=== PATIENT | female | born 1955 | race Caucasian/White ===

== ENCOUNTER 2018-01-06 12:09 | Emergency (ER) | payer BC, SELFPAY ==
[2018-01-06 12:15] VITALS: BP 137/90; PULSE 87; RESP 18; TEMP 36.9; O2SAT 98
--- NOTE | 2018-01-06 12:25 | ED.EYEPROB ---
HPI - Eye Problem <Abiola Combs PA-C - Last Filed: 01/06/18 16:02> General Chief complaint: Eye Problems Stated complaint: NEED SOMEONE TO CHECK MY EYES Time Seen by Provider: 01/06/18 12:13 Source: patient Mode of arrival: ambulatory Limitations: no limitations History of Present Illness HPI Narrative: HPI: This 62-year-old patient complained of bilateral eye redness, pain, mattering and tearing which started Tuesday night. She states that she used a potent herbicide called [employer] that day. Some of it spilled, however she does not think she got any of it directly in her eyes. She did clean it up and there were fumes. She does not know of any other exposures. She states that by that evening, she began to have pain, redness, and by the next morning had a lot of mattering, right eye was worse initially. She states she has seen her crystal flat grinder twice and was told likely viral pink eye. She has been using large amounts of her lubricating drops, but this has continued to get worse. She denies any fever. She states that she has had some ongoing allergy symptoms but denies any new URI sx in the last week or so. She states that she can see normally aside from the tearing and mattering. Related Data Allergies Allergy/AdvReac Type Severity Reaction Status Date / Time No Known Drug Allergies Allergy Verified 01/06/18 13:40 Review of Systems <Abiola Combs PA-C - Last Filed: 01/06/18 16:02> Review of Systems All systems reviewed & are unremarkable except as noted in HPI and below Exam <Abiola Combs PA-C - Last Filed: 01/06/18 16:02> Narrative Exam Narrative: GENERAL APPEARANCE: Patient sitting comfortably, in no distress. EYES: PERRL, EOMI. Bright red erythema through all of the conjunctiva and covering the cornea which injection surrounding the iris bilaterally. Tearing, no mattering. I am not able to visualize the retina well with and dilated pupils. Vision: OS 20/100, OD 20/50, OU 20/50 NECK/THYROID: Neck supple, full range of motion, no cervical lymphadenopathy. LUNGS: Clear to auscultation bilaterally, no cough on exam. HEART: RRR without murmur, nl S1, S2, no S3 or S4. Initial Vital Signs Initial Vital Signs: Vital Signs Temperature 98.5 F 01/06/18 12:15 Pulse Rate 87 01/06/18 12:15 Respiratory Rate 18 01/06/18 12:15 Blood Pressure 137/90 H 01/06/18 12:15 Pulse Oximetry 98 01/06/18 12:15 <Toñito Solorio MD - Last Filed: 01/06/18 17:19> Initial Vital Signs Initial Vital Signs: Vital Signs Temperature 98.5 F 01/06/18 12:15 Pulse Rate 87 01/06/18 12:15 Respiratory Rate 18 01/06/18 12:15 Blood Pressure 137/90 H 01/06/18 12:15 Pulse Oximetry 98 01/06/18 12:15 Course <Abiola Combs PA-C - Last Filed: 01/06/18 16:02> Hospital Course: I called poison control who advised they would not expect severe toxicity with this level of exposure to this agent. It has been several days now since exposure. I explained certainly there could be a secondary bacterial infection here, however this does seem worse than typical conjunctivitis, and she complains of significant eye pain, not just irritation. Given this, we called her crystal flat grinder and scheduled her a follow-up appointment this afternoon, as I explained a dilated eye exam is probably needed and may need some treatment with steroids. Advised to continue Vaseline for skin irritation. Orders Ordered: Discontinued Medications Erythromycin (Erythromycin Ophth Oint) 1 applic EYE-BOTH NOW ONE Stop: 01/06/18 13:31 Last Admin: 01/06/18 13:41 Dose: 1 applic Proparacaine HCl (Parcaine 0.5% Ophth Ashleigh) 1 drops EYE-BOTH NOW ONE Stop: 01/06/18 12:30 Last Admin: 01/06/18 12:31 Dose: 1 1000units Vital Signs - 8 hr 01/06/18 12:15 01/06/18 14:04 Temperature 98.5 F Pulse Rate 87 80 Respiratory Rate 18 20 Blood Pressure 137/90 H 132/102 H Pulse Oximetry 98 98 <Toñito Solorio MD - Last Filed: 01/06/18 17:19> Orders Ordered: Discontinued Medications Erythromycin (Erythromycin Ophth Oint) 1 applic EYE-BOTH NOW ONE Stop: 06/01/18 13:31 Last Admin: 01/06/18 13:41 Dose: 1 applic Proparacaine HCl (Parcaine 0.5% Ophth Ashleigh) 1 drops EYE-BOTH NOW ONE Stop: 01/06/18 12:30 Last Admin: 01/06/18 12:31 Dose: 1 1000units Vital Signs - 8 hr 01/06/18 12:15 01/06/18 14:04 Temperature 98.5 F Pulse Rate 87 80 Respiratory Rate 18 20 Blood Pressure 137/90 H 132/102 H Pulse Oximetry 98 98 Discharge Plan Departure Patient Disposition: Home, Self-Care Clinical Impression: Conjunctivitis of both eyes Discharge Date/Time: 01/06/18 14:05 Interventions: ED Discharge Assessment Last Done: 01/06/18 14:04 Activity Restrictions/Additional Instructions: When you leave here, please return to Dr. Dillon's office for more thorough exam. They will be expecting you. You can show them the ointment we have given you. That is for a bacterial infection and may also be soothing for your eyes. Please use a warm pack as often as needed to help with the drainage. Use Vaseline around your eyes to help with the irritation. I think that some of the irritation may be from the chemical exposure, but typically this would have such a long lasting effect. Your eyes are also more irritated that we would see from atypical conjunctivitis, so there may be more than 1 type of infection or irritant contributing to this. Sometimes a secondary bacterial infection will develop so it is reasonable to treat for this. Please discuss with Dr. Dillon whether to continue the antibiotic ointment and to add anything else such as steroid drops. Referrals: Norm Roy MD [Primary Care Provider] - <Toñito Solorio MD - Last Filed: 01/06/18 17:19> Cosign ED Attending Cosignature Attestation: The PA/SENIOR INTERACTIVE PRODUCER functioned independently for the care of this pt, I was available, but not asked to participate in care. I am unable to determine appropriateness of management without personally examining the pt.
[2018-01-06] MEDS: PROPARACAINE 0.5% OPHTH SOL 1 DROPS EYE-BOTH (12:31)
--- NOTE | 2018-01-06 12:41 | ED_ITS ---
HPI - Eye Problem <Abiola Combs PA-C - Last Filed: 01/06/18 16:02> General Chief complaint: Eye Problems Stated complaint: NEED SOMEONE TO CHECK MY EYES Time Seen by Provider: 01/06/18 12:13 Source: patient Mode of arrival: ambulatory Limitations: no limitations History of Present Illness HPI Narrative: HPI: This 62-year-old patient complained of bilateral eye redness, pain, mattering and tearing which started Tuesday night. She states that she used a potent herbicide called [employer] that day. Some of it spilled, however she does not think she got any of it directly in her eyes. She did clean it up and there were fumes. She does not know of any other exposures. She states that by that evening, she began to have pain, redness, and by the next morning had a lot of mattering, right eye was worse initially. She states she has seen her manager msw twice and was told likely viral pink eye. She has been using large amounts of her lubricating drops, but this has continued to get worse. She denies any fever. She states that she has had some ongoing allergy symptoms but denies any new URI sx in the last week or so. She states that she can see normally aside from the tearing and mattering. Related Data Allergies Allergy/AdvReac Type Severity Reaction Status Date / Time No Known Drug Allergies Allergy Verified 01/06/18 13:40 Review of Systems <Abiola Combs PA-C - Last Filed: 01/06/18 16:02> Review of Systems All systems reviewed & are unremarkable except as noted in HPI and below Exam <Abiola Combs PA-C - Last Filed: 01/06/18 16:02> Narrative Exam Narrative: GENERAL APPEARANCE: Patient sitting comfortably, in no distress. EYES: PERRL, EOMI. Bright red erythema through all of the conjunctiva and covering the cornea which injection surrounding the iris bilaterally. Tearing, no mattering. I am not able to visualize the retina well with and dilated pupils. Vision: OS 20/100, OD 20/50, OU 20/50 NECK/THYROID: Neck supple, full range of motion, no cervical lymphadenopathy. LUNGS: Clear to auscultation bilaterally, no cough on exam. HEART: RRR without murmur, nl S1, S2, no S3 or S4. Initial Vital Signs Initial Vital Signs: Vital Signs Temperature 98.5 F 01/06/18 12:15 Pulse Rate 87 01/06/18 12:15 Respiratory Rate 18 01/06/18 12:15 Blood Pressure 137/90 H 01/06/18 12:15 Pulse Oximetry 98 01/06/18 12:15 <Toñito Solorio MD - Last Filed: 01/06/18 17:19> Initial Vital Signs Initial Vital Signs: Vital Signs Temperature 98.5 F 01/06/18 12:15 Pulse Rate 87 01/06/18 12:15 Respiratory Rate 18 01/06/18 12:15 Blood Pressure 137/90 H 01/06/18 12:15 Pulse Oximetry 98 01/06/18 12:15 Course <Abiola Combs PA-C - Last Filed: 01/06/18 16:02> Hospital Course: I called poison control who advised they would not expect severe toxicity with this level of exposure to this agent. It has been several days now since exposure. I explained certainly there could be a secondary bacterial infection here, however this does seem worse than typical conjunctivitis, and she complains of significant eye pain, not just irritation. Given this, we called her manager msw and scheduled her a follow-up appointment this afternoon, as I explained a dilated eye exam is probably needed and may need some treatment with steroids. Advised to continue Vaseline for skin irritation. Orders Ordered: Discontinued Medications Erythromycin (Erythromycin Ophth Oint) 1 applic EYE-BOTH NOW ONE Stop: 01/06/18 13:31 Last Admin: 01/06/18 13:41 Dose: 1 applic Proparacaine HCl (Parcaine 0.5% Ophth Ashleigh) 1 drops EYE-BOTH NOW ONE Stop: 01/06/18 12:30 Last Admin: 01/06/18 12:31 Dose: 1 1000units Vital Signs - 8 hr 01/06/18 12:15 01/06/18 14:04 Temperature 98.5 F Pulse Rate 87 80 Respiratory Rate 18 20 Blood Pressure 137/90 H 132/102 H Pulse Oximetry 98 98 <Toñito Solorio MD - Last Filed: 01/06/18 17:19> Orders Ordered: Discontinued Medications Erythromycin (Erythromycin Ophth Oint) 1 applic EYE-BOTH NOW ONE Stop: 06/01/18 13:31 Last Admin: 01/06/18 13:41 Dose: 1 applic Proparacaine HCl (Parcaine 0.5% Ophth Ashleigh) 1 drops EYE-BOTH NOW ONE Stop: 01/06/18 12:30 Last Admin: 01/06/18 12:31 Dose: 1 1000units Vital Signs - 8 hr 01/06/18 12:15 01/06/18 14:04 Temperature 98.5 F Pulse Rate 87 80 Respiratory Rate 18 20 Blood Pressure 137/90 H 132/102 H Pulse Oximetry 98 98 Discharge Plan Departure Patient Disposition: Home, Self-Care Clinical Impression: Conjunctivitis of both eyes Discharge Date/Time: 01/06/18 14:05 Interventions: ED Discharge Assessment Last Done: 01/06/18 14:04 Activity Restrictions/Additional Instructions: When you leave here, please return to Dr. Dillon's office for more thorough exam. They will be expecting you. You can show them the ointment we have given you. That is for a bacterial infection and may also be soothing for your eyes. Please use a warm pack as often as needed to help with the drainage. Use Vaseline around your eyes to help with the irritation. I think that some of the irritation may be from the chemical exposure, but typically this would have such a long lasting effect. Your eyes are also more irritated that we would see from atypical conjunctivitis, so there may be more than 1 type of infection or irritant contributing to this. Sometimes a secondary bacterial infection will develop so it is reasonable to treat for this. Please discuss with Dr. Dillon whether to continue the antibiotic ointment and to add anything else such as steroid drops. Referrals: Norm Roy MD [Primary Care Provider] - <Toñito Solorio MD - Last Filed: 01/06/18 17:19> Cosign ED Attending Cosignature Attestation: The PA/METAL FABRICATING SUPERVISOR functioned independently for the care of this pt, I was available, but not asked to participate in care. I am unable to determine appropriateness of management without personally examining the pt.
[2018-01-06] MEDS: ERYTHROMYCIN OPHTH 1 GM OINT 1 APPLIC EYE-BOTH (13:41)
[2018-01-06 14:04] VITALS: BP 132/102; PULSE 80; RESP 20; O2SAT 98
== END 2018-01-06 14:05 | disposition home or self-care (01) ==
PROVIDERS: Emergency Provider Internal Medicine; PCP Internal Medicine
DX: H10.9 Unspecified conjunctivitis (principal)
CPT/HCPCS: 99283

== ENCOUNTER → 2018-10-19 10:38 | Outpatient (CLI) | payer BC, SELFPAY ==
--- NOTE | 2018-10-19 | DI.MG.S_ITS ---
BILATERAL DIGITAL SCREENING MAMMOGRAM 3D/2D WITH CAD: 10/19/2018 CLINICAL: Routine screening. Comparison is made to exams dated: 09/19/2017 mammogram, 07/29/2016 mammogram - [facility], and 01/18/2014 [place] [facility] The tissue of both breasts is heterogeneously dense. This may lower the sensitivity of mammography. Current study was also evaluated with a Computer Aided Detection (CAD) system. There are benign calcifications in both breasts. No significant masses, calcifications, or other findings are seen in either breast. There has been no significant interval change. IMPRESSION: There is no mammographic evidence of malignancy. A 1 year screening mammogram is recommended. This exam was interpreted at Station ID: [id number]. NOTE: For mammograms, a report in lay terms will be sent to the patient. Approximately 15% of breast malignancies will not be visualized mammographically. In the management of a palpable breast mass, a negative mammogram must not discourage biopsy of a clinically suspicious lesion. Electronically Signed By: Elías peña/catina:10/19/2018 11:24:54 letter sent: Normal Exam ACR BI-RADS Category 2: Benign Finding(s) 3342F
== END ==
PROVIDERS: PCP Internal Medicine; Visit Provider Internal Medicine
DX: Z12.31 Encounter for screening mammogram for malignant neoplasm of breast (principal)
CPT/HCPCS: 77063; 77067

== ENCOUNTER → 2019-04-17 12:53 | Outpatient (CLI) | payer BC, SELFPAY | PROVIDERS: PCP Internal Medicine; Visit Provider Internal Medicine | DX: M85.852 Other specified disorders of bone density and structure, left thigh (principal); Z78.0 Asymptomatic menopausal state; E07.9 Disorder of thyroid, unspecified; Z87.891 Personal history of nicotine dependence; Z90.722 Acquired absence of ovaries, bilateral | CPT/HCPCS: 77080 ==

== ENCOUNTER → 2020-10-27 15:33 | Outpatient (CLI) | payer BC, SELFPAY ==
--- NOTE | 2020-10-27 15:34 | DI.MG.S_ITS ---
BILATERAL DIGITAL SCREENING MAMMOGRAM 3D/2D WITH CAD: 10/27/2020 CLINICAL: Routine screening. Comparison is made to exams dated: 10/19/2018 mammogram, 09/19/2017 mammogram, and 07/29/2016 mammogram - [facility]. The tissue of both breasts is heterogeneously dense. This may lower the sensitivity of mammography. Current study was also evaluated with a Computer Aided Detection (CAD) system. There are benign calcifications in both breasts. No significant masses, calcifications, or other findings are seen in either breast. There has been no significant interval change. IMPRESSION: BENIGN There is no mammographic evidence of malignancy. A 1 year screening mammogram is recommended. This exam was interpreted at Station ID: [id number]. NOTE: For mammograms, a report in lay terms will be sent to the patient. Approximately 15% of breast malignancies will not be visualized mammographically. In the management of a palpable breast mass, a negative mammogram must not discourage biopsy of a clinically suspicious lesion. Electronically Signed By: Elías peña/catina:10/27/2020 16:45:14 letter sent: Normal Exam ACR BI-RADS Category 2: Benign Finding(s) 3342F
== END ==
PROVIDERS: PCP Internal Medicine; Referring Provider Internal Medicine; Visit Provider Internal Medicine
DX: Z12.31 Encounter for screening mammogram for malignant neoplasm of breast (principal)
CPT/HCPCS: 77063; 77067

== ENCOUNTER → 2022-10-11 11:54 | Outpatient (CLI) | payer MEDICARE, BC, SELFPAY ==
--- NOTE | 2022-10-11 | DI.MG.S_ITS ---
BILATERAL DIGITAL SCREENING MAMMOGRAM 3D/2D WITH CAD: 10/11/2022 CLINICAL: Routine screening. Comparison is made to exams dated: 10/19/2018 mammogram, 10/27/2020 mammogram, and 09/19/2017 mammogram - [facility]. Both breasts are heterogeneously dense, which may obscure small masses (category c / 51-75% glandular tissue). Current study was also evaluated with a Computer Aided Detection (CAD) system. There are benign calcifications in both breasts. There also are benign post operative findings in both breasts. No significant masses, calcifications, or other findings are seen in either breast. There has been no significant interval change. IMPRESSION: BENIGN There is no mammographic evidence of malignancy. A 1 year screening mammogram is recommended. Based on the Tyrer Cuzick model (a risk assessment model) the patient's lifetime risk is 3.7% and her 10 year risk is 1.9%. According to the ACR, ACS, and NCCN guidelines, an annual breast MRI exam along with mammogram is recommended if the patient's lifetime risk is 20% or greater. This exam was interpreted at Station ID: [id number]. NOTE: For mammograms, a report in lay terms will be sent to the patient. Approximately 15% of breast malignancies will not be visualized mammographically. In the management of a palpable breast mass, a negative mammogram must not discourage biopsy of a clinically suspicious lesion. Electronically Signed By: Elías peña/catina:10/11/2022 16:13:59 letter sent: Normal Exam ACR BI-RADS Category 2: Benign Finding(s) 3342F
--- NOTE | 2022-10-11 12:13 | DI.DEXA.S_ITS ---
Indication: osteopenia; Referring Provider: SOUMYA GREENFIELD Study: Bone densitometry was performed. Exam Date: October 11, 2022 Accession number: [id number] Bone Density: Region BMD T-score Z-score Classification AP Spine(L1-L4) 0.891 -1.4 0.5 Osteopenia Femoral Neck (Left) 0.639 -1.9 -0.3 Osteopenia Total Hip (Left) 0.813 -1.1 0.3 Osteopenia Femoral Neck (Right) 0.626 -2.0 -0.4 Osteopenia Total Hip (Right) 0.796 -1.2 0.1 Osteopenia Total Hip Mean 0.805 -1.2 0.2 Osteopenia World Health Organization criteria for BMD impression classify patients as: Normal (T-score at or above -1.0), Osteopenia (T-score between -1.0 and -2.5), or Osteoporosis (T-score at or below -2.5). 10-year Fracture Risk(1): Major Osteoporotic Fracture 13% Hip Fracture 2.6% Reported Risk Factors: [place] (), Neck BMD=0.626, BMI=23.8, alcohol use (1) FRAX(R) Version 3.08. Fracture probability calculated for an untreated patient. Fracture probability may be lower if the patient has received treatment. Previous Exams: -- Region Exam Age BMD T-score BMD Change BMD Change Date g/cm2 vs Baseline vs Previous -- AP Spine (L1-L4) 10/11/2022 66 0.891 -1.4 -0.055 (-5.8%)# -0.055 (-5.8%)# 04/17/2019 63 0.946 -0.9 Total Hip(Left) 10/11/2022 66 0.813 -1.1 0.005 (0.7%)# 0.005 (0.7%)# 04/17/2019 63 0.808 -1.1 Total Hip(Right) 10/11/2022 66 0.796 -1.2 -0.053 (-6.2%)# -0.053 (-6.2%)# 04/17/2019 63 0.848 -0.8 -- *Denotes significance at 95% confidence level, LSC for AP Spine = 0.022 g/cm2, LSC for Total Hip = 0.027 g/cm2 # Denotes dissimilar scan types or analysis methods Impression: The patient has low bone mass, based on the Right Femoral Neck T-score. The patient has an estimated ten-year risk of hip fracture of 2.6% and an estimated ten-year risk of major fracture of 13%, based on the WHO FRAX algorithm. The patient has risk factors, including: excessive alcohol use. No significant bone loss was observed. Discussion: BONE DENSITY IS LOW AT ONE OR MORE SKELETAL SITES. This patient's lowest T-score is low at one or more skeletal sites. It meets the World Health Organization's (WHO) criteria for ?low bone mass? (T-score between -1.0 and -2.5). The patient's 10-year risk of fracture as calculated by FRAX is less than the threshold where pharmacological therapy is recommended by the National Osteoporosis Foundation (NOF). However, all treatment decisions require clinical judgment and consideration of individual patient factors, including patient preferences, comorbidities, previous drug use, risk factors not captured in the FRAX model (e.g., frailty, falls, vitamin D deficiency, increased bone turnover, interval significant decline in bone density) and possible under or overestimation of fracture risk by FRAX. The patient should follow a healthful lifestyle (good nutrition with adequate calcium and vitamin D, and appropriate weight-bearing exercise). Follow-Up: Consider repeating this study in 2 to 3 years to reassess this patient's status, or sooner if there is some new clinical indication. Reported by: Kenyatta Zaragoza M.D. on 10/11/2022 12:24:00 PM.
== END ==
PROVIDERS: PCP Physician Assistant; Referring Provider Physician Assistant; Visit Provider Physician Assistant
DX: Z12.31 Encounter for screening mammogram for malignant neoplasm of breast (principal); M85.851 Other specified disorders of bone density and structure, right thigh; Z78.0 Asymptomatic menopausal state; Z92.23 Personal history of estrogen therapy; Z90.710 Acquired absence of both cervix and uterus
CPT/HCPCS: 77063; 77067; 77080

== ENCOUNTER 2022-11-29 08:20 | Day surgery (SDC) | payer MEDICARE, BC, SELFPAY ==
[2022-11-29 08:51] VITALS: BP 129/81; PULSE 20; RESP 16; TEMP 36.2; O2SAT 100; BMI 23.8
--- NOTE | 2022-11-29 08:59 | P.HP_ITS ---
History of Present Illness History of Present Illness Date Patient Seen: 11/29/22 Time Patient Seen: 08:59 Chief complaint: Screening Colonoscopy w/poss bx Narrative: Here for colon cancer screening. [facility] Medical History Diverticulosis Endometriosis determined by laparoscopy History of cystocele Sjogren's disease Surgical History H/O hysterectomy with oophorectomy Social History household members: spouse Smoking Status: Former smoker Meds Home Medications and Allergies Home Medications Medication Instructions Recorded Confirmed Type levothyroxine 75 mcg capsule 75 mcg PO DAILY 05/15/18 11/29/22 History mupirocin 2 % topical ointment 1 applic topical BID #30 grams 07/07/19 07/07/19 Rx naltrexone 4.5 mg PO QD-QID 11/29/22 11/29/22 History Allergies Allergy/AdvReac Type Severity Reaction Status Date / Time No Known Drug Allergies Allergy Verified 11/29/22 08:35 Review of Systems Review of Systems ROS: Yes All systems reviewed with the patient and are negative except as otherwise documented Exam Vital Signs (past 8 hours): - 11/29/22 08:51 Temperature 97.1 F L Pulse Rate 20 L Respiratory Rate 16 Blood Pressure 129/81 Pulse Oximetry 100 Oxygen Delivery Method Room Air Oxygen Delivery Method Room Air Const General: cooperative HENMT Head: normal to inspection Eyes General: appearance normal, both eyes and all related structures Neck Neck: normal visual inspection Chest Chest: normal inspection of the chest Resp Effort & Inspection: normal respiratory effort Cardio Rate: regular rate GI Inspection: normal to inspection Skin General: no rashes or lesions noted Neuro General: patient alert and patient awake Extrem General: normal to inspection and no pedal edema Psych Appearance: grossly normal Assessment & Plan Assessment & Plan narrative: 66-year-old female here for colon cancer screening. Colonoscopy is pursued today.
[2022-11-29] MEDS: LACTATED RINGERS 1,000 ML 84 ML IV (09:00)
--- NOTE | 2022-11-29 09:00 | PM.PREOP ---
Pre-operative Note Interval Note History & Physical reviewed/Exam performed by Physician: Yes Changes to H&P: No ASA Class (for procedural sedation): II
--- NOTE | 2022-11-29 10:09 | PM.OP.COLON ---
Operative Date/Time/Diagnoses Date of procedure: 11/29/22 Time of procedure: 10:09 Pre-op diagnosis: Colon cancer screening Post-op diagnosis: same Procedure & Clinicians Study performed: Colonoscopy Same procedure as scheduled: Yes Indications: Colon cancer screening Surgeon: Robi Nix Procedure Notes SCOAP/Timeout: Done Procedure in detail: After the risks and benefits were explained, written and verbal informed consent was obtained. The patient was brought into the procedure room and placed into the left lateral decubitus position. Please see anesthesia notes for sedation details. Digital rectal examination was accomplished. The scope was introduced into the patient and advanced under direct visualization to the cecum as identified by the appendiceal orifice and ileocecal valve. The scope was slowly withdrawn to carefully examine the mucosa for any defects or lesions. Comprehensive imaging was accomplished throughout the rectum including the dentate line. The colon was decompressed, the scope was then removed from the patient who tolerated the procedure well. Adult colonoscope Bowel prep adequate Scope withdrawal time: 8 minutes Sedation minutes: 23 Specimen(s): none sent Complications: none Impression: The patient had an exceedingly tortuous colon. Navigation was very difficult. We had to use ultimately the right lateral decubitus position with use of pressure and the scope stiffening jared. Patient had extensive diverticulosis extending from the left colon into ascending. I did not appreciate any significant polyps mass lesions or inflammatory features identified throughout. Grade 4 hemorrhoids nonthrombosed were noted on direct views. Endoscopic diagnosis 1. Grade 4 hemorrhoids 2. Diverticulosis 3. Tortuous colon Post-procedure Plan for aftercare: Repeat colonoscopy 10 years; sooner should symptoms warrant an earlier exam. I recommend pediatric colonoscope in the future. Disposition: PACU
[2022-11-29 10:10] VITALS: BP 90/58; PULSE 87; RESP 12; TEMP 36.2; O2SAT 99
[2022-11-29 10:14] VITALS: BP 98/63; PULSE 70; RESP 12; O2SAT 100
[2022-11-29 10:23] VITALS: BP 115/65; PULSE 67; RESP 15; O2SAT 100
== END 2022-11-29 10:38 | disposition home or self-care (01) ==
PROVIDERS: PCP Physician Assistant; Referring Provider Internal Medicine Gastroenterology; Visit Provider Internal Medicine Gastroenterology
PROC: 0DJD8ZZ Inspection of Lower Intestinal Tract, Via Natural or Artificial Opening Endoscopic (ICD-10-PCS; CPT 45378; principal; 2022-11-29 09:30)
DX: Z12.11 Encounter for screening for malignant neoplasm of colon (principal); K64.3 Fourth degree hemorrhoids; K57.30 Diverticulosis of large intestine without perforation or abscess without bleeding
CPT/HCPCS: G0121; J2704

== ENCOUNTER → 2023-04-25 11:11 | Outpatient (CLI) | payer MEDICARE, BC, SELFPAY ==
--- NOTE | 2023-04-25 | DI.CT.S_ITS ---
PROCEDURE: CT UE RT WO CON INDICATIONS: Pain in right wrist TECHNIQUE: Noncontrast 1 mm axial sections acquired through the carpal bones, with coronal and sagittal reformats. COMPARISON: [facility] [place], CR, XR HAND 3+ VIEWS RIGHT, 04/15/2023, 10:13. [facility] Outside Film, CR, XR WRIST 3+ VIEWS RIGHT, 01/18/2023, 9:19. FINDINGS: Image quality: Excellent. Bones: Postsurgical changes are again seen from distal radial fracture fixation with a volar plate screw construct. A fracture appears healed with residual deformity of the distal radial articular surface. There is volar subluxation of the scaphoid, which appears to be located between an osseous protuberance at the dorsal aspect of the radius and the volar metal plate. There is associated chronic osseous remodeling. An ununited osseous fragment is seen at the volar ulnar aspect of the distal radius. There is negative ulnar variance. No osteonecrosis of the lunate. [id number] degenerative changes at the 1st carpometacarpal joint. Generalized osteopenia. Chronic ununited ulnar styloid fracture also noted. Soft tissues: Small radiocarpal effusion. The articular cartilages, ligaments, and tendons are not well evaluated with standard CT. The musculature surrounding the wrist is normal in bulk. IMPRESSION: 1. Postsurgical changes from internal fixation of the distal radial fracture with residual osseous deformity at the distal radius including the articular surface. There is volar subluxation of the scaphoid, which is interposed between the dorsal aspect of the distal radial articular surface and the volar metallic plate, with chronic osseous remodeling. Ununited radial fracture fragment is seen along the volar ulnar aspect of the radius with a chronic fracture line extending into the radiolunate articulation and the distal radioulnar joint. 2. Chronic ununited ulnar styloid fracture. 3. [id number]-[id number] 1st carpometacarpal osteoarthrosis. Approved by: Hemant Zaragoza M.D. on 04/25/2023 at 16:05
== END ==
PROVIDERS: PCP Physician Assistant; Referring Provider Orthopaedic Surgery; Visit Provider Orthopaedic Surgery
DX: S52.501K Unspecified fracture of the lower end of right radius, subsequent encounter for closed fracture with nonunion (principal); S52.611K Displaced fracture of right ulna styloid process, subsequent encounter for closed fracture with nonunion; M18.11 Unilateral primary osteoarthritis of first carpometacarpal joint, right hand; M25.531 Pain in right wrist; X58.XXXD Exposure to other specified factors, subsequent encounter
CPT/HCPCS: 73200

== ENCOUNTER → 2023-10-22 10:16 | Outpatient (CLI) | payer MEDICARE, BC, SELFPAY ==
--- NOTE | 2023-10-22 | DI.MG.S_ITS ---
BILATERAL DIGITAL SCREENING MAMMOGRAM 3D/2D WITH CAD: 10/22/2023 CLINICAL: Routine screening. Comparison is made to exams dated: 10/11/2022 mammogram, 10/27/2020 mammogram, and 10/19/2018 mammogram - [facility]. Both breasts are heterogeneously dense, which may obscure small masses (category c / 51-75% glandular tissue). Current study was also evaluated with a Computer Aided Detection (CAD) system. There are benign calcifications in both breasts. There also are benign post operative findings in both breasts. No significant masses, calcifications, or other findings are seen in either breast. There has been no significant interval change. IMPRESSION: BENIGN There is no mammographic evidence of malignancy. A 1 year screening mammogram is recommended. Based on the Tyrer Cuzick model (a risk assessment model) the patient's lifetime risk is 3.5% and her 10 year risk is 1.9%. According to the ACR, ACS, and NCCN guidelines, an annual breast MRI exam along with mammogram is recommended if the patient's lifetime risk is 20% or greater. This exam was interpreted at Station ID: [id number]. NOTE: For mammograms, a report in lay terms will be sent to the patient. Approximately 15% of breast malignancies will not be visualized mammographically. In the management of a palpable breast mass, a negative mammogram must not discourage biopsy of a clinically suspicious lesion. Electronically Signed By: Charles jauregui/catina:10/24/2023 10:36:51 letter sent: Normal Exam ACR BI-RADS Category 2: Benign Finding(s) 3342F
== END ==
LOC: MAMMO 10:19
PROVIDERS: PCP Physician Assistant; Referring Provider Physician Assistant; Visit Provider Physician Assistant
DX: Z12.31 Encounter for screening mammogram for malignant neoplasm of breast (principal); R92.333 Mammographic heterogeneous density, bilateral breasts
CPT/HCPCS: 77063; 77067

== ENCOUNTER → 2025-01-10 07:53 | Outpatient (CLI) | payer MEDICARE, BC, SELFPAY ==
--- NOTE | 2025-01-10 07:55 | DI.MG.S_ITS ---
MM screening mammo BI: 01/10/2025. BI-RADS: 1 CLINICAL: 69-year old female for bilateral screening mammogram. Tyrer-Cuzick lifetime risk of 4.5%. Current reported family history of breast cancer: daughter. PRIOR EXAMS 10/22/2023, 10/11/2022, 10/27/2020, 10/19/2018, 09/19/2017, 07/29/2016. MAMMOGRAPHY TECHNIQUE: 2D and 3D (tomosynthesis) digital mammographic views obtained, with additional images as needed for full coverage. Current study was also evaluated with a Computer Aided Detection (CAD) system. DENSITY C. The breasts are heterogeneously dense, which may obscure small masses. MAMMOGRAPHY FINDINGS Bilateral: No suspicious mass, asymmetry, microcalcification, or other abnormality seen. IMPRESSION: * No evidence of malignancy. RECOMMENDATIONS Bilateral * Annual screening mammography. OVERALL ASSESSMENT CATEGORY BI-RADS-1: Negative. The [employer] recommends annual screening mammography beginning at age 40 for women with average risk of breast cancer. ELECTRONICALLY SIGNED: Nan Bain M.D. on 01/13/2025 at 01:38:18 PM PT Interpreting Station ID: [id number]
== END ==
PROVIDERS: PCP Physician Assistant; Referring Provider Physician Assistant; Visit Provider Physician Assistant
DX: Z12.31 Encounter for screening mammogram for malignant neoplasm of breast (principal); Z80.3 Family history of malignant neoplasm of breast; R92.333 Mammographic heterogeneous density, bilateral breasts
CPT/HCPCS: 77063; 77067